=== PATIENT | male | born 1965 | race Caucasian/White ===

== ENCOUNTER 2016-06-06 11:23 | Inpatient (IN) | payer MEDICAID ==
[~2016-06-06] VITALS: Ht 187.9 cm; Wt 65.1 kg
[~2016-06-06 11:23] MED LIST: ANUSOL-HC25 MG RC; ATIVAN1 MG PO; AUGMENTIN 875 M1 TAB PO; Anusol Hc,Anuco25 MG PO; BACTRIM DS 8001 TA1 PO; CIPRO500 MG PO; CIPROFLOXACIN500 MG PO; CORTISPORIN SUS10 ML OT; DEBROX15 ML OT; DOXYCYCLINE100 M3 PO; FLOMAX0.4 MG PO; FLONASE 0.05% 121 EA NAS; HYDROCODONE BIT1 T11 PO; IBU-8800 MG PO; KEFLEX500 MG PO; MACROBID100 M1 PO; NAPROSYN500 MG PO; NKHM; PEN-VEE K500 MG PO; PYRIDIUM200 M1 PO; PYRIDIUM200 MG PO; TUCKS TP; ZYRTEC10 M2 PO; [UNRECOGNIZED DRUG - OTHER] PO; [UNRECOGNIZED DRUG - REMARK]
[2016-06-06 11:56] VITALS: BP 170/87
[2016-06-06 12:32] LABS: HEMATOCRIT 42.1 % (42.0-52.0); HEMOGLOBIN 14.3 g/dl (14.0-18.0); MEAN CELL VOLUME 98.6 fl (80.0-94.0); MEAN CORPUSCULAR HGB 33.5 pg (27.0-31.0); MEAN PLATELET VOLUME 9.9 fl (9.6-12.3); PLATELET COUNT AUTOMATED 279 10*3/uL (130-400); RED BLOOD COUNT 4.27 10*6/uL (4.50-5.90); RED CELL DISTRI WIDTH 12.7 % (0-14.5); WHITE BLOOD COUNT 18.6 10*3/uL (4.8-10.8)
[2016-06-06 12:44] LABS: BILIRUBIN 1+ (NEGATIVE); BLOOD 3+ (NEGATIVE); CLARITY TURBID (CLEAR); COLOR YELLOW (YELLOW); GLUCOSE NEGATIVE (NEGATIVE); KETONE NEGATIVE (NEGATIVE); PH 8.5 (5.0-9.0); SPECIFIC GRAVITY 1.005 (1.005-1.030)
[2016-06-06 12:45] LABS: LEUKO ESTERASE 3+ (NEGATIVE); NITRITE POSITIVE (NEGATIVE); PROTEIN 2+ (NEGATIVE); UROBILINOGEN 0.2 E.U./dl (0.2-1.0)
[2016-06-06 12:48] LABS: BACTERIA 4+; EPITHELIAL CELLS 21-30; RBC 21-30 rbc/hpf (0-2); URINE REFLEX COMMENT YES (NO); WBC TNTC wbc/hpf (0-5)
[2016-06-06 12:51] LABS: ALBUMIN 3.3 gm/dl (3.1-4.5); BASOPHIL # 0.2 10*3/uL (0-0.1); BASOPHILS 1 % (0-1); BILIRUBIN, TOTAL 0.6 mg/dl (0.2-1.0); EOSINOPHIL # 0.6 10*3/uL (0-0.4); EOSINOPHILS 3 % (1-4); LYMPHOCYTE # 2.8 10*3/uL (1.3-4.4); MONOCYTE # 0.7 10*3/uL (0.1-1.0); NEUTROPHIL # 14.3 10*3/uL (2.3-7.9); NEUTROPHILS 77 % (47-73); PLATELET SUFFICIENCY NORMAL (NORMAL); POTASSIUM 4.1 mmol/L (3.5-5.1); TOTAL CELLS COUNTED 100 #CELLS; TOTAL PROTEIN 7.2 gm/dL (6.4-8.2)
[2016-06-06 14:32] VITALS: BP 152/80
[2016-06-06 16:28] VITALS: BP 155/89
[2016-06-06 20:00] VITALS: BP 133/69
[2016-06-07] VITALS: BP 123/70
[2016-06-07 05:48] LABS: BUN 10 mg/dl (7-24); CARBON DIOXIDE 25 mmol/L (21-32); CHLORIDE 111 mmol/L (98-107); CHOLESTEROL 146 mg/dL (<200); EST GLOM FILT AFRICAN AMERICAN > 60 ml/min; FREE T4 1.26 ng/dl (0.76-1.46); GLUCOSE 89 mg/dL (65-99); HDL CHOLESTEROL 30 mg/dl (40-60); LDL CHOLESTEROL 90 mg/dL (9-159); MAGNESIUM 1.9 mg/dL (1.5-2.1); POTASSIUM 3.6 mmol/L (3.5-5.1); SODIUM 145 mmol/L (136-145); THYROID STIM HORMONE (HS) 0.932 uIU/ml (0.358-4.75); TRIGLYCERIDES 128 mg/dl (<150); VLDL CHOLESTEROL 26 mg/dL (6-40)
[2016-06-07 05:51] LABS: HEMOGLOBIN A1c 4.9 % (4.8-5.6)
[2016-06-07 06:09] LABS: BASO # 0.1 10*3/uL (0.0-0.1); BASO % 0.5 % (0.0-1.0); EOS # 0.6 10*3/uL (0.0-0.4); HEMATOCRIT 38.7 % (42.0-52.0); HEMOGLOBIN 12.9 g/dl (14.0-18.0); IG # 0.1 10*3/uL (0.0-0.1); LYMPH # 3.1 10*3/uL (1.3-4.4); LYMPH % 21.8 % (27.0-41.0); MEAN CELL VOLUME 99.5 fl (80.0-94.0); MEAN CORPUSCULAR HGB 33.2 pg (27.0-31.0); MEAN CORPUSCULAR HGB CONC 33.3 g/dl (33.0-37.0); MEAN PLATELET VOLUME 10.5 fl (9.6-12.3); MONO # 1.3 10*3/uL (0.1-1.0); MONO % 9.1 % (3.0-9.0); NEUT % 64.1 % (47.0-73.0); PLATELET COUNT AUTOMATED 267 10*3/uL (130-400); RED BLOOD COUNT 3.89 10*6/uL (4.50-5.90); RED CELL DISTRI WIDTH 12.9 % (0-14.5)
[2016-06-07 06:18] LABS: PROTHROMBIN TIME 10.2 SECONDS (9.0-12.4)
[2016-06-07 08:00] VITALS: BP 131/62
[2016-06-07 12:00] VITALS: BP 129/70
[2016-06-07 16:00] VITALS: BP 140/73
[2016-06-07 20:00] VITALS: BP 145/78
[2016-06-08] VITALS: BP 156/82
[2016-06-08 06:22] LABS: BASO # 0.1 10*3/uL (0.0-0.1); BASO % 0.6 % (0.0-1.0); EOS # 0.6 10*3/uL (0.0-0.4); EOS % 5.3 % (1.0-4.0); HEMOGLOBIN 12.6 g/dl (14.0-18.0); IG # 0.1 10*3/uL (0.0-0.1); LYMPH # 2.6 10*3/uL (1.3-4.4); LYMPH % 24.3 % (27.0-41.0); MEAN CELL VOLUME 99.2 fl (80.0-94.0); MEAN CORPUSCULAR HGB 32.9 pg (27.0-31.0); MEAN CORPUSCULAR HGB CONC 33.2 g/dl (33.0-37.0); MEAN PLATELET VOLUME 9.9 fl (9.6-12.3); MONO # 0.9 10*3/uL (0.1-1.0); MONO % 8.7 % (3.0-9.0); NEUT # 6.4 10*3/uL (2.3-7.9); NEUT % 60.5 % (47.0-73.0); PLATELET COUNT AUTOMATED 255 10*3/uL (130-400); RED BLOOD COUNT 3.83 10*6/uL (4.50-5.90); RED CELL DISTRI WIDTH 12.5 % (0-14.5); WHITE BLOOD COUNT 10.6 10*3/uL (4.8-10.8)
[2016-06-08 07:02] LABS: BUN 9 mg/dl (7-24); CARBON DIOXIDE 26 mmol/L (21-32); CHLORIDE 109 mmol/L (98-107); EST GLOM FILT AFRICAN AMERICAN > 60 ml/min; GLUCOSE 88 mg/dL (65-99); POTASSIUM 3.4 mmol/L (3.5-5.1); SODIUM 143 mmol/L (136-145)
[2016-06-08 08:00] VITALS: BP 136/70
[2016-06-08] MEDS ORDERED: FLOMAX0.4 MG PO (10:13)
[2016-06-08] MEDS ORDERED: CIPRO500 MG PO (10:14)
[2016-06-08 15:09] LABS: FOLIC ACID 8.27 ng/mL (>5.38)
[2016-06-20] MEDS ORDERED: FLOMAX0.4 MG PO (10:07)
[2016-06-20] MEDS ORDERED: HYDROCODONE BIT1 T11 PO (13:36)
[2016-06-20] MEDS ORDERED: DITROPAN XL5 MG PO (13:36)
== END 2016-06-08 14:10 | disposition home or self-care (01) | DRG 872 ==
LOC: ED 11:23 → 4E 16:05 → EDHOLD 16:05 → 4E 16:35
PROVIDERS: Internal Medicine; Registered Nurse
DX: A41.9 Sepsis, unspecified organism (principal); E44.0 Moderate protein-calorie malnutrition; N19 Unspecified kidney failure; N12 Tubulo-interstitial nephritis, not specified as acute or chronic; N13.30 Unspecified hydronephrosis; Z68.1 Body mass index [BMI] 19.9 or less, adult; R03.0 Elevated blood-pressure reading, without diagnosis of hypertension; N21.0 Calculus in bladder; N13.9 Obstructive and reflux uropathy, unspecified; N32.89 Other specified disorders of bladder; F41.9 Anxiety disorder, unspecified

== ENCOUNTER 2016-07-01 10:31 | Emergency (ER) | payer OTHER ==
[~2016-07-01] VITALS: Ht 187.9 cm; Wt 65.8 kg
[~2016-07-01 10:31] MED LIST changes: +DITROPAN XL5 MG PO
[2016-07-01 10:53] VITALS: BP 140/66
[2016-07-01 11:42] LABS: BILIRUBIN NEGATIVE (NEGATIVE); BLOOD 1+ (NEGATIVE); CLARITY SL CLOUDY (CLEAR); COLOR YELLOW (YELLOW); GLUCOSE NEGATIVE (NEGATIVE); KETONE NEGATIVE (NEGATIVE); LEUKO ESTERASE 1+ (NEGATIVE); NITRITE NEGATIVE (NEGATIVE); PH 6.5 (5.0-9.0); PROTEIN TRACE (NEGATIVE); UROBILINOGEN 0.2 E.U./dl (0.2-1.0)
[2016-07-01 11:56] LABS: BACTERIA 1+; WBC 21-30 wbc/hpf (0-5)
[2016-07-01 11:57] LABS: URINE REFLEX COMMENT YES (NO)
[2016-07-01] MEDS ORDERED: MACROBID100 M1 PO (12:00)
== END 2016-07-01 12:04 | disposition home or self-care (01) ==
LOC: ED 10:31
PROVIDERS: Nurse Practitioner Family
DX: N39.0 Urinary tract infection, site not specified (principal); R31.9 Hematuria, unspecified; R33.9 Retention of urine, unspecified; R03.0 Elevated blood-pressure reading, without diagnosis of hypertension; F41.9 Anxiety disorder, unspecified; F17.200 Nicotine dependence, unspecified, uncomplicated; Z79.899 Other long term (current) drug therapy

== ENCOUNTER 2016-08-21 11:41 | Emergency (ER) | payer OTHER ==
[2016-08-21 12:10] LABS: BILIRUBIN 1+ (NEGATIVE); BLOOD 2+ (NEGATIVE); CLARITY TURBID (CLEAR); COLOR YELLOW (YELLOW); GLUCOSE NEGATIVE (NEGATIVE); KETONE NEGATIVE (NEGATIVE); PH 7.5 (5.0-9.0); PROTEIN 1+ (NEGATIVE); SPECIFIC GRAVITY 1.005 (1.005-1.030)
[2016-08-21 12:11] LABS: UROBILINOGEN 0.2 E.U./dl (0.2-1.0)
[2016-08-21 12:13] LABS: NITRITE NEGATIVE (NEGATIVE)
[2016-08-21 12:14] LABS: LEUKO ESTERASE 3+ (NEGATIVE); URINE REFLEX COMMENT YES (NO); WBC TNTC wbc/hpf (0-5)
[2016-08-21 12:17] LABS: BASO # 0.1 10*3/uL (0.0-0.1); BASO % 0.6 % (0.0-1.0); EOS # 0.5 10*3/uL (0.0-0.4); EOS % 3.4 % (1.0-4.0); HEMATOCRIT 44.5 % (42.0-52.0); HEMOGLOBIN 15.4 g/dl (14.0-18.0); IG # 0.1 10*3/uL (0.0-0.1); LYMPH # 3.2 10*3/uL (1.3-4.4); LYMPH % 24.2 % (27.0-41.0); MEAN CELL VOLUME 94.9 fl (80.0-94.0); MEAN CORPUSCULAR HGB 32.8 pg (27.0-31.0); MEAN CORPUSCULAR HGB CONC 34.6 g/dl (33.0-37.0); MONO # 0.6 10*3/uL (0.1-1.0); MONO % 4.4 % (3.0-9.0); NEUT # 8.8 10*3/uL (2.3-7.9); PLATELET COUNT AUTOMATED 267 10*3/uL (130-400); RED BLOOD COUNT 4.69 10*6/uL (4.50-5.90); RED CELL DISTRI WIDTH 12.2 % (0-14.5); WHITE BLOOD COUNT 13.2 10*3/uL (4.8-10.8)
[2016-08-21 12:33] LABS: ALBUMIN 3.8 gm/dl (3.1-4.5); BILIRUBIN, TOTAL 0.4 mg/dl (0.2-1.0); POTASSIUM 3.6 mmol/L (3.5-5.1); TOTAL PROTEIN 7.8 gm/dL (6.4-8.2)
[2016-08-21] MEDS ORDERED: CEPHALEXIN500 M1 PO (12:51)
== END 2016-08-21 12:56 | disposition home or self-care (01) ==
LOC: ED 11:41
PROVIDERS: Registered Nurse
DX: N30.00 Acute cystitis without hematuria (principal); J20.9 Acute bronchitis, unspecified; F17.210 Nicotine dependence, cigarettes, uncomplicated; F41.9 Anxiety disorder, unspecified; Z79.899 Other long term (current) drug therapy

== ENCOUNTER 2016-11-30 11:22 | Emergency (ER) | payer OTHER ==
[~2016-11-30] VITALS: Ht 187.9 cm; Wt 68.0 kg
[~2016-11-30 11:22] MED LIST changes: +CEPHALEXIN500 M1 PO
[2016-11-30 11:27] VITALS: BP 149/88
[2016-11-30] MEDS ORDERED: NAPROSYN500 MG PO (11:40)
[2016-11-30 11:48] LABS: BILIRUBIN NEGATIVE (NEGATIVE); BLOOD 1+ (NEGATIVE); CLARITY CLOUDY (CLEAR); COLOR YELLOW (YELLOW); GLUCOSE NEGATIVE (NEGATIVE); KETONE NEGATIVE (NEGATIVE); LEUKO ESTERASE 3+ (NEGATIVE); NITRITE POSITIVE (NEGATIVE); PH 6.5 (5.0-9.0); PROTEIN NEGATIVE (NEGATIVE); UROBILINOGEN 0.2 E.U./dl (0.2-1.0)
[2016-11-30 11:50] LABS: URINE REFLEX COMMENT YES (NO)
[2016-11-30 11:51] LABS: WBC TNTC wbc/hpf (0-5)
[2016-11-30] MEDS ORDERED: BACTRIM DS 8001 TA1 PO (11:55)
== END 2016-11-30 14:17 | disposition home or self-care (01) ==
LOC: ED 11:22
PROVIDERS: Nurse Practitioner Family
DX: S80.02XA Contusion of left knee, initial encounter (principal); N39.0 Urinary tract infection, site not specified; R03.0 Elevated blood-pressure reading, without diagnosis of hypertension; F17.200 Nicotine dependence, unspecified, uncomplicated; W22.8XXA Striking against or struck by other objects, initial encounter; Y93.89 Activity, other specified; Y92.89 Other specified places as the place of occurrence of the external cause; Y99.8 Other external cause status

== ENCOUNTER 2017-02-11 21:32 | Inpatient (IN) | payer OTHER ==
[~2017-02-11] VITALS: Ht 187.9 cm; Wt 67.8 kg
[2017-02-11 21:32] VITALS: BP 137/77
[2017-02-11 21:52] LABS: BASO # 0.1 10*3/uL (0.0-0.1); BASO % 0.6 % (0.0-1.0); EOS # 0.6 10*3/uL (0.0-0.4); EOS % 4.4 % (1.0-4.0); HEMATOCRIT 43.9 % (42.0-52.0); LYMPH % 30.4 % (27.0-41.0); MEAN CELL VOLUME 95.9 fl (80.0-94.0); MEAN CORPUSCULAR HGB 32.8 pg (27.0-31.0); MEAN CORPUSCULAR HGB CONC 34.2 g/dl (33.0-37.0); MEAN PLATELET VOLUME 9.7 fl (9.6-12.3); MONO # 0.9 10*3/uL (0.1-1.0); MONO % 6.5 % (3.0-9.0); NEUT # 7.5 10*3/uL (2.3-7.9); NEUT % 57.9 % (47.0-73.0); PLATELET COUNT AUTOMATED 250 10*3/uL (130-400); RED BLOOD COUNT 4.58 10*6/uL (4.50-5.90); RED CELL DISTRI WIDTH 13.3 % (0-14.5)
[2017-02-11 22:00] VITALS: BP 128/78
[2017-02-11 22:02] LABS: ACT PARTIAL THROMBO TIME 25.1 SECONDS (20.8-31.5)
[2017-02-11 22:09] LABS: ALBUMIN 3.4 gm/dl (3.1-4.5); ALKALINE PHOSPHATASE 147 U/L (45-117); BUN 17 mg/dl (7-24); CHLORIDE 108 mmol/L (98-107); POTASSIUM 3.7 mmol/L (3.5-5.1); SGOT/AST 24 IU/L (3-35); SGPT/ALT 23 U/L (12-78); SODIUM 140 mmol/L (136-145); TOTAL PROTEIN 7.6 gm/dL (6.4-8.2)
[2017-02-11 22:10] LABS: TROPONIN I < 0.015 ng/ml (<0.045)
[2017-02-11 22:55] VITALS: BP 132/74
[2017-02-11 23:40] VITALS: BP 162/58
[2017-02-12 00:28] VITALS: BP 132/72
[2017-02-12 01:30] VITALS: BP 128/62
[2017-02-12 02:28] VITALS: BP 128/78
[2017-02-12 02:45] VITALS: BP 139/70
[2017-02-12 06:24] LABS: ALKALINE PHOSPHATASE 110 U/L (45-117); BUN 17 mg/dl (7-24); CHLORIDE 112 mmol/L (98-107); CHOLESTEROL 177 mg/dL (<200); CREATININE 1.28 mg/dL (0.70-1.30); HDL CHOLESTEROL 32 mg/dl (40-60); LDL CHOLESTEROL 113 mg/dL (9-159); POTASSIUM 3.7 mmol/L (3.5-5.1); SGOT/AST 17 IU/L (3-35); SGPT/ALT 18 U/L (12-78); SODIUM 142 mmol/L (136-145); TOTAL PROTEIN 6.5 gm/dL (6.4-8.2); TRIGLYCERIDES 162 mg/dl (<150); VLDL CHOLESTEROL 32 mg/dL (6-40)
[2017-02-12 08:00] VITALS: BP 123/72; BP 138/72
[2017-02-12 12:00] VITALS: BP 133/81
== END 2017-02-12 14:43 | disposition home or self-care (01) | DRG 313 ==
LOC: ED 21:32 → EDHOLD 02-12 00:35 → 5E 02-12 00:46
PROVIDERS: Emergency Medicine Emergency Medical Services; ADMIT Internal Medicine
DX: R07.2 Precordial pain (principal); N17.0 Acute kidney failure with tubular necrosis; E44.1 Mild protein-calorie malnutrition; Z68.1 Body mass index [BMI] 19.9 or less, adult; F41.9 Anxiety disorder, unspecified; F17.210 Nicotine dependence, cigarettes, uncomplicated; R00.1 Bradycardia, unspecified; D72.829 Elevated white blood cell count, unspecified; E87.8 Other disorders of electrolyte and fluid balance, not elsewhere classified; M25.512 Pain in left shoulder

== ENCOUNTER 2017-03-16 15:06 | Emergency (ER) | payer OTHER ==
[~2017-03-16] VITALS: Wt 68.0 kg
[2017-03-16 15:22] VITALS: BP 132/71
[2017-03-16 16:35] LABS: BILIRUBIN NEGATIVE (NEGATIVE); BLOOD 3+ (NEGATIVE); CLARITY CLOUDY (CLEAR); COLOR YELLOW (YELLOW); GLUCOSE NEGATIVE (NEGATIVE); KETONE NEGATIVE (NEGATIVE); LEUKO ESTERASE 3+ (NEGATIVE); NITRITE NEGATIVE (NEGATIVE); PH 6.5 (5.0-9.0); SPECIFIC GRAVITY <= 1.005 (1.005-1.030); UROBILINOGEN 0.2 E.U./dl (0.2-1.0)
[2017-03-16 16:46] LABS: BACTERIA 4+; RBC TNTC rbc/hpf (0-2); WBC TNTC wbc/hpf (0-5)
[2017-03-16] MEDS ORDERED: CIPRO500 MG PO (17:09)
== END 2017-03-16 17:17 | disposition left against medical advice (07) ==
LOC: ED 15:06
PROVIDERS: Physician Assistant
DX: N39.0 Urinary tract infection, site not specified (principal); L98.9 Disorder of the skin and subcutaneous tissue, unspecified; F17.200 Nicotine dependence, unspecified, uncomplicated

== ENCOUNTER 2017-03-18 16:25 | Emergency (ER) | payer OTHER ==
[~2017-03-18] VITALS: Ht 187.9 cm; Wt 68.0 kg
[2017-03-18 16:31] VITALS: BP 140/81
[2017-03-18 17:29] LABS: BASO # 0.1 10*3/uL (0.0-0.1); BASO % 0.6 % (0.0-1.0); EOS # 0.4 10*3/uL (0.0-0.4); EOS % 3.8 % (1.0-4.0); HEMATOCRIT 39.8 % (42.0-52.0); HEMOGLOBIN 13.6 g/dl (14.0-18.0); LYMPH # 3.4 10*3/uL (1.3-4.4); LYMPH % 30.6 % (27.0-41.0); MEAN CELL VOLUME 97.1 fl (80.0-94.0); MEAN CORPUSCULAR HGB 33.2 pg (27.0-31.0); MEAN CORPUSCULAR HGB CONC 34.2 g/dl (33.0-37.0); MEAN PLATELET VOLUME 10.4 fl (9.6-12.3); MONO # 0.7 10*3/uL (0.1-1.0); NEUT # 6.6 10*3/uL (2.3-7.9); NEUT % 58.7 % (47.0-73.0); PLATELET COUNT AUTOMATED 236 10*3/uL (130-400); RED CELL DISTRI WIDTH 12.5 % (0-14.5); WHITE BLOOD COUNT 11.2 10*3/uL (4.8-10.8)
[2017-03-18 17:47] LABS: ALBUMIN 3.3 gm/dl (3.1-4.5); CREATININE 1.54 mg/dL (0.70-1.30); POTASSIUM 3.5 mmol/L (3.5-5.1)
== END 2017-03-18 20:31 | disposition home or self-care (01) ==
LOC: ED 16:25
PROVIDERS: Nurse Practitioner Family
DX: K40.90 Unilateral inguinal hernia, without obstruction or gangrene, not specified as recurrent (principal); F17.200 Nicotine dependence, unspecified, uncomplicated

== ENCOUNTER 2017-04-20 08:31 | Emergency (ER) | payer OTHER ==
[~2017-04-20] VITALS: Ht 187.9 cm; Wt 68.0 kg
[2017-04-20 08:44] VITALS: BP 138/97
[2017-04-20 09:25] LABS: BILIRUBIN NEGATIVE (NEGATIVE); BLOOD 3+ (NEGATIVE); CLARITY CLOUDY (CLEAR); COLOR YELLOW (YELLOW); GLUCOSE NEGATIVE (NEGATIVE); KETONE NEGATIVE (NEGATIVE); LEUKO ESTERASE 3+ (NEGATIVE); NITRITE NEGATIVE (NEGATIVE); UROBILINOGEN 0.2 E.U./dl (0.2-1.0)
[2017-04-20 09:42] LABS: BACTERIA 4+; WBC TNTC wbc/hpf (0-5)
[2017-04-20] MEDS ORDERED: CLARITIN10 MG PO (09:52)
[2017-04-20] MEDS ORDERED: CIPRO500 MG PO (09:52)
[2017-04-20] MEDS ORDERED: FLONASE ALLERG9.9 ML NAS (09:52)
== END 2017-04-20 10:15 | disposition home or self-care (01) ==
LOC: ED 08:31
PROVIDERS: Emergency Medicine
DX: N39.0 Urinary tract infection, site not specified (principal); R03.0 Elevated blood-pressure reading, without diagnosis of hypertension; F17.210 Nicotine dependence, cigarettes, uncomplicated; F10.10 Alcohol abuse, uncomplicated; Z79.899 Other long term (current) drug therapy

== ENCOUNTER 2017-11-12 07:49 | Emergency (ER) | payer OTHER ==
[~2017-11-12] VITALS: Ht 187.9 cm; Wt 72.6 kg
[2017-11-12 07:49] VITALS: BP 128/79
[~2017-11-12 07:49] MED LIST changes: +CLARITIN10 MG PO; +FLONASE ALLERG9.9 ML NAS
[2017-11-12 08:12] LABS: BASO # 0.1 10*3/uL (0.0-0.1); BASO % 0.7 % (0.0-1.0); EOS # 0.4 10*3/uL (0.0-0.4); EOS % 2.9 % (1.0-4.0); HEMATOCRIT 41.7 % (42.0-52.0); HEMOGLOBIN 14.3 g/dl (14.0-18.0); LYMPH # 3.1 10*3/uL (1.3-4.4); LYMPH % 23.2 % (27.0-41.0); MEAN CELL VOLUME 96.5 fl (80.0-94.0); MEAN CORPUSCULAR HGB 33.1 pg (27.0-31.0); MEAN CORPUSCULAR HGB CONC 34.3 g/dl (33.0-37.0); MEAN PLATELET VOLUME 9.8 fl (9.6-12.3); MONO # 0.7 10*3/uL (0.1-1.0); MONO % 5.5 % (3.0-9.0); NEUT # 9.2 10*3/uL (2.3-7.9); NEUT % 67.3 % (47.0-73.0); PLATELET COUNT AUTOMATED 243 10*3/uL (130-400); RED BLOOD COUNT 4.32 10*6/uL (4.50-5.90); RED CELL DISTRI WIDTH 12.2 % (0-14.5); WHITE BLOOD COUNT 13.6 10*3/uL (4.8-10.8)
[2017-11-12 08:20] LABS: ACT PARTIAL THROMBO TIME 23.9 SECONDS (20.8-31.5)
[2017-11-12 08:26] LABS: ALBUMIN 3.6 gm/dl (3.1-4.5); CREATININE 1.68 mg/dL (0.70-1.30); POTASSIUM 3.9 mmol/L (3.5-5.1); TOTAL PROTEIN 7.2 gm/dL (6.4-8.2)
[2017-11-12 08:27] LABS: BILIRUBIN NEGATIVE (NEGATIVE); BLOOD 3+ (NEGATIVE); CLARITY CLOUDY (CLEAR); COLOR YELLOW (YELLOW); GLUCOSE NEGATIVE (NEGATIVE); KETONE NEGATIVE (NEGATIVE); LEUKO ESTERASE 3+ (NEGATIVE); NITRITE NEGATIVE (NEGATIVE); SPECIFIC GRAVITY 1.015 (1.005-1.030); UROBILINOGEN 0.2 E.U./dl (0.2-1.0)
[2017-11-12 08:42] LABS: BACTERIA 3+; RBC TNTC rbc/hpf (0-2); WBC TNTC wbc/hpf (0-5)
[2017-11-12] MEDS ORDERED: FLOMAX0.4 MG PO (09:23)
[2017-11-12] MEDS ORDERED: CIPRO500 MG PO (09:23)
== END 2017-11-12 10:29 | disposition home or self-care (01) ==
LOC: ED 07:49
PROVIDERS: Emergency Medicine
DX: R33.9 Retention of urine, unspecified (principal); N39.0 Urinary tract infection, site not specified; E78.00 Pure hypercholesterolemia, unspecified; F17.200 Nicotine dependence, unspecified, uncomplicated; Z79.899 Other long term (current) drug therapy

== ENCOUNTER 2017-11-15 13:17 | Emergency (ER) | payer OTHER ==
[~2017-11-15] VITALS: Ht 187.9 cm; Wt 72.6 kg
[2017-11-15 13:19] VITALS: BP 126/80
[2017-11-15] MEDS ORDERED: ANAPROX DS550 MG PO (15:08)
== END 2017-11-15 15:21 | disposition home or self-care (01) ==
LOC: ED 13:17
DX: M79.662 Pain in left lower leg (principal)

== ENCOUNTER 2017-11-17 08:28 | Emergency (ER) | payer OTHER ==
[~2017-11-17] VITALS: Ht 187.9 cm; Wt 72.6 kg
[~2017-11-17 08:28] MED LIST changes: +ANAPROX DS550 MG PO
[2017-11-17 08:31] VITALS: BP 121/65
== END 2017-11-17 09:16 | disposition home or self-care (01) ==
LOC: ED 08:28
DX: T83.89XA Other specified complication of genitourinary prosthetic devices, implants and grafts, initial encounter (principal); B88.8 Other specified infestations; F17.200 Nicotine dependence, unspecified, uncomplicated; Z79.899 Other long term (current) drug therapy; Y92.9 Unspecified place or not applicable

== ENCOUNTER 2017-11-23 08:57 | Emergency (ER) | payer OTHER ==
[~2017-11-23] VITALS: Ht 182.8 cm; Wt 72.6 kg
[2017-11-23 09:00] VITALS: BP 109/79
[2017-11-23 09:37] LABS: BASO # 0.1 10*3/uL (0.0-0.1); BASO % 0.6 % (0.0-1.0); EOS # 0.5 10*3/uL (0.0-0.4); EOS % 3.7 % (1.0-4.0); HEMATOCRIT 40.7 % (42.0-52.0); HEMOGLOBIN 13.8 g/dl (14.0-18.0); LYMPH # 3.1 10*3/uL (1.3-4.4); LYMPH % 24.4 % (27.0-41.0); MEAN CELL VOLUME 98.5 fl (80.0-94.0); MEAN CORPUSCULAR HGB 33.4 pg (27.0-31.0); MEAN CORPUSCULAR HGB CONC 33.9 g/dl (33.0-37.0); MEAN PLATELET VOLUME 9.7 fl (9.6-12.3); MONO # 0.6 10*3/uL (0.1-1.0); MONO % 4.9 % (3.0-9.0); NEUT # 8.3 10*3/uL (2.3-7.9); NEUT % 66.2 % (47.0-73.0); PLATELET COUNT AUTOMATED 260 10*3/uL (130-400); RED BLOOD COUNT 4.13 10*6/uL (4.50-5.90); RED CELL DISTRI WIDTH 12.6 % (0-14.5); WHITE BLOOD COUNT 12.5 10*3/uL (4.8-10.8)
[2017-11-23 09:53] LABS: ALBUMIN 3.7 gm/dl (3.1-4.5); ALKALINE PHOSPHATASE 97 U/L (45-117); BUN 19 mg/dl (7-24); CHLORIDE 107 mmol/L (98-107); CREATININE 1.46 mg/dL (0.70-1.30); POTASSIUM 3.9 mmol/L (3.5-5.1); SGOT/AST 17 IU/L (3-35); SGPT/ALT 21 U/L (12-78); SODIUM 139 mmol/L (136-145)
[2017-11-23 09:55] LABS: TROPONIN I < 0.015 ng/ml (<0.045)
[2017-11-23] MEDS ORDERED: NAPROSYN500 MG PO (10:24)
== END 2017-11-23 10:49 | disposition left against medical advice (07) ==
LOC: ED 08:57
PROVIDERS: Nurse Practitioner
DX: S86.912A Strain of unspecified muscle(s) and tendon(s) at lower leg level, left leg, initial encounter (principal); R42 Dizziness and giddiness; H57.12 Ocular pain, left eye; F17.200 Nicotine dependence, unspecified, uncomplicated; Z79.899 Other long term (current) drug therapy; X58.XXXA Exposure to other specified factors, initial encounter; Y93.01 Activity, walking, marching and hiking; Y92.89 Other specified places as the place of occurrence of the external cause; Y99.8 Other external cause status

== ENCOUNTER 2017-12-24 09:11 | Emergency (ER) | payer OTHER ==
[~2017-12-24] VITALS: Ht 187.9 cm; Wt 72.6 kg
[2017-12-24 09:12] VITALS: BP 130/81
[2017-12-24] MEDS ORDERED: NAPROSYN500 MG PO (09:29)
== END 2017-12-24 09:45 | disposition home or self-care (01) ==
LOC: ED 09:11
DX: S80.12XA Contusion of left lower leg, initial encounter (principal); X58.XXXA Exposure to other specified factors, initial encounter; Y93.89 Activity, other specified; Y92.89 Other specified places as the place of occurrence of the external cause; Y99.8 Other external cause status

== ENCOUNTER → 2018-02-28 | Emergency (ER) | payer OTHER ==
[~2018-02-28] VITALS: Ht 187.9 cm; Wt 72.6 kg
[2018-02-28 12:36] VITALS: BP 117/55
== END ==
LOC: ED 12:36
DX: H92.01 Otalgia, right ear (principal); Z53.21 Procedure and treatment not carried out due to patient leaving prior to being seen by health care provider; F17.200 Nicotine dependence, unspecified, uncomplicated; Z79.899 Other long term (current) drug therapy

== ENCOUNTER 2018-03-04 08:05 | Emergency (ER) | payer OTHER ==
[~2018-03-04] VITALS: Ht 187.9 cm; Wt 72.6 kg
[2018-03-04 08:08] VITALS: BP 125/69
== END 2018-03-04 10:19 | disposition home or self-care (01) ==
LOC: ED 08:05
DX: H61.21 Impacted cerumen, right ear (principal)

== ENCOUNTER 2018-03-07 18:00 | Emergency (ER) | payer OTHER ==
[~2018-03-07] VITALS: Ht 177.8 cm; Wt 72.6 kg
--- NOTE | ~2018-03-07 | EKG ---
[place], [place] ELECTROCARDIOGRAM REPORT NAME: OSMEL BAUM UNIT #: [id number] ROOM: DOCTOR: EPIPHANY DRAFT REPORT BIRTHDATE: [birth year] [facility] Test Date: 2018-03-07 Test Time: 18:01:48 Pat Name: OSMEL BAUM Department: Room: Gender: M Laundrette Owner: Montse Hartley : 1965 Requested By: RADHA MORGAN Order Number: [id number] Reading MD: Angelito Colunga MD Measurements Intervals [place] Rate: 103 P: 77 DC: 130 QRS: -38 QRSD: 108 T: 59 QT: 344 QTc: 451 Interpretive Statements Sinus tachycardia Probable left atrial enlargement Left axis deviation Extensive anterior infarct, acute (LAD) Acute anterior STEMI Electronically Signed On 03-07-2018 19:55:41 PDT by Angelito Colunga MD CM:EKGRPT:ELECTROCARDIOGRAM REPORT 00 54 RADHA HANCOCK DRAFT REPORT RADHA MORGAN MD
[2018-03-07 18:17] LABS: BASO # 0.1 10*3/uL (0.0-0.1); BASO % 0.6 % (0.0-1.0); EOS # 0.3 10*3/uL (0.0-0.4); EOS % 2.3 % (1.0-4.0); HEMOGLOBIN 13.4 g/dl (14.0-18.0); LYMPH # 1.9 10*3/uL (1.3-4.4); LYMPH % 14.8 % (27.0-41.0); MEAN CELL VOLUME 99.5 fl (80.0-94.0); MEAN CORPUSCULAR HGB 33.3 pg (27.0-31.0); MEAN CORPUSCULAR HGB CONC 33.5 g/dl (33.0-37.0); MEAN PLATELET VOLUME 9.9 fl (9.6-12.3); MONO # 0.7 10*3/uL (0.1-1.0); MONO % 5.7 % (3.0-9.0); NEUT # 9.8 10*3/uL (2.3-7.9); NEUT % 76.1 % (47.0-73.0); PLATELET COUNT AUTOMATED 297 10*3/uL (130-400); RED BLOOD COUNT 4.02 10*6/uL (4.50-5.90); RED CELL DISTRI WIDTH 12.9 % (0-14.5); WHITE BLOOD COUNT 12.8 10*3/uL (4.8-10.8)
[2018-03-07 18:18] VITALS: BP 112/77
[2018-03-07 18:26] LABS: ACT PARTIAL THROMBO TIME 23.5 SECONDS (20.8-31.5)
[2018-03-07 18:33] LABS: ALBUMIN 3.4 gm/dl (3.1-4.5); CREATININE 1.92 mg/dL (0.70-1.30); POTASSIUM 3.9 mmol/L (3.5-5.1); TOTAL PROTEIN 7.3 gm/dL (6.4-8.2)
[2018-03-07 18:48] LABS: TROPONIN I 5.35 ng/ml (<0.045)
== END 2018-03-07 18:37 | disposition short-term general hospital (02) ==
LOC: ED 18:00
PROVIDERS: Emergency Medicine
DX: I21.09 ST elevation (STEMI) myocardial infarction involving other coronary artery of anterior wall (principal); E78.00 Pure hypercholesterolemia, unspecified; I10 Essential (primary) hypertension; F17.200 Nicotine dependence, unspecified, uncomplicated

== ENCOUNTER 2018-11-28 09:15 | Emergency (ER) | payer OTHER ==
[~2018-11-28] VITALS: Wt 72.6 kg
[2018-11-28 09:15] VITALS: BP 148/86
[~2018-11-28 09:15] MED LIST changes: +ASPIR LOW81 MG PO; +ATORVASTATIN CA80 M1 PO; +FAMOTIDINE20 M1 PO; +LISINOPRIL2.5 MG PO; +MAPAP325 MG PO; +METOPROLOL SUCC25 M2 PO
[2018-11-28] MEDS ORDERED: DEBROX15 ML OT (09:39)
[2019-01-22] MEDS ORDERED: CIPRO500 MG PO (10:55)
== END 2018-11-28 09:44 | disposition home or self-care (01) ==
LOC: ED 09:15
DX: H61.21 Impacted cerumen, right ear (principal); F17.200 Nicotine dependence, unspecified, uncomplicated; Z79.2 Long term (current) use of antibiotics; Z79.899 Other long term (current) drug therapy; Z79.82 Long term (current) use of aspirin

== ENCOUNTER 2018-12-30 12:14 | Emergency (ER) | payer OTHER ==
[~2018-12-30] VITALS: Ht 187.9 cm; Wt 72.6 kg
[2018-12-30 12:15] VITALS: BP 128/76
[2018-12-30] MEDS ORDERED: IBU800 MG PO (13:28)
== END 2018-12-30 13:35 | disposition home or self-care (01) ==
LOC: ED 12:14
DX: S76.112A Strain of left quadriceps muscle, fascia and tendon, initial encounter (principal); F17.200 Nicotine dependence, unspecified, uncomplicated; Z79.899 Other long term (current) drug therapy; Z79.82 Long term (current) use of aspirin; X58.XXXA Exposure to other specified factors, initial encounter; Y93.01 Activity, walking, marching and hiking; Y92.89 Other specified places as the place of occurrence of the external cause; Y99.8 Other external cause status

== ENCOUNTER 2019-02-06 09:13 | Emergency (ER) | payer OTHER ==
[~2019-02-06] VITALS: Ht 187.9 cm; Wt 72.6 kg
[~2019-02-06 09:13] MED LIST changes: +IBU800 MG PO
[2019-02-06 09:18] VITALS: BP 151/80
[2019-02-06 10:39] LABS: BILIRUBIN NEGATIVE (NEGATIVE); BLOOD NEGATIVE (NEGATIVE); CLARITY SL CLOUDY (CLEAR); COLOR YELLOW (YELLOW); GLUCOSE NEGATIVE (NEGATIVE); KETONE NEGATIVE (NEGATIVE); LEUKO ESTERASE 1+ (NEGATIVE); NITRITE NEGATIVE (NEGATIVE); SPECIFIC GRAVITY <= 1.005 (1.005-1.030); UROBILINOGEN 0.2 E.U./dl (0.2-1.0)
[2019-02-06 10:53] LABS: BASO # 0.1 10*3/uL (0.0-0.1); BASO % 0.8 % (0.0-1.0); EOS # 0.3 10*3/uL (0.0-0.4); EOS % 2.9 % (1.0-4.0); HEMATOCRIT 42.7 % (42.0-52.0); HEMOGLOBIN 14.3 g/dl (14.0-18.0); LYMPH # 1.7 10*3/uL (1.3-4.4); LYMPH % 19.3 % (27.0-41.0); MEAN CELL VOLUME 98.8 fl (80.0-94.0); MEAN CORPUSCULAR HGB 33.1 pg (27.0-31.0); MEAN CORPUSCULAR HGB CONC 33.5 g/dl (33.0-37.0); MEAN PLATELET VOLUME 9.6 fl (9.6-12.3); MONO # 0.8 10*3/uL (0.1-1.0); MONO % 9.2 % (3.0-9.0); NEUT % 67.5 % (47.0-73.0); PLATELET COUNT AUTOMATED 328 10*3/uL (130-400); RED BLOOD COUNT 4.32 10*6/uL (4.50-5.90); RED CELL DISTRI WIDTH 12.9 % (0-14.5); WHITE BLOOD COUNT 8.8 10*3/uL (4.8-10.8)
[2019-02-06 11:10] LABS: ALBUMIN 3.6 gm/dl (3.1-4.5); BUN 9 mg/dl (7-24); CHLORIDE 105 mmol/L (98-107); CREATININE 1.39 mg/dL (0.70-1.30); POTASSIUM 4.1 mmol/L (3.5-5.1); SGOT/AST 18 IU/L (3-35); SGPT/ALT 29 U/L (12-78); SODIUM 138 mmol/L (136-145); TOTAL PROTEIN 7.6 gm/dL (6.4-8.2)
[2019-02-06 11:11] LABS: ALKALINE PHOSPHATASE 151 U/L (45-117)
== END 2019-02-06 11:42 | disposition home or self-care (01) ==
LOC: ED 09:13
PROVIDERS: Nurse Practitioner Family
DX: R59.0 Localized enlarged lymph nodes (principal); I10 Essential (primary) hypertension; I25.2 Old myocardial infarction; F17.200 Nicotine dependence, unspecified, uncomplicated; Z79.2 Long term (current) use of antibiotics; Z79.899 Other long term (current) drug therapy; Z87.442 Personal history of urinary calculi

== ENCOUNTER 2019-02-22 08:44 | Emergency (ER) | payer OTHER ==
[~2019-02-22] VITALS: Ht 187.9 cm; Wt 72.6 kg
[2019-02-22 08:46] VITALS: BP 138/80
[2019-02-22 09:31] LABS: BASO # 0.1 10*3/uL (0.0-0.1); BASO % 0.8 % (0.0-1.0); EOS # 0.6 10*3/uL (0.0-0.4); EOS % 4.7 % (1.0-4.0); HEMOGLOBIN 14.2 g/dl (14.0-18.0); LYMPH # 3.7 10*3/uL (1.3-4.4); MEAN CELL VOLUME 98.1 fl (80.0-94.0); MEAN CORPUSCULAR HGB 33.2 pg (27.0-31.0); MEAN CORPUSCULAR HGB CONC 33.8 g/dl (33.0-37.0); MONO # 0.6 10*3/uL (0.1-1.0); MONO % 4.7 % (3.0-9.0); NEUT # 7.7 10*3/uL (2.3-7.9); NEUT % 60.5 % (47.0-73.0); PLATELET COUNT AUTOMATED 272 10*3/uL (130-400); RED BLOOD COUNT 4.28 10*6/uL (4.50-5.90); RED CELL DISTRI WIDTH 12.9 % (0-14.5); WHITE BLOOD COUNT 12.7 10*3/uL (4.8-10.8)
[2019-02-22 09:46] LABS: ALBUMIN 3.6 gm/dl (3.1-4.5); CREATININE 1.49 mg/dL (0.70-1.30); TOTAL PROTEIN 7.2 gm/dL (6.4-8.2)
[2019-02-22 10:03] LABS: BILIRUBIN NEGATIVE (NEGATIVE); BLOOD TRACE-INTACT (NEGATIVE); CLARITY CLOUDY (CLEAR); COLOR YELLOW (YELLOW); GLUCOSE NEGATIVE (NEGATIVE); KETONE NEGATIVE (NEGATIVE); LEUKO ESTERASE 3+ (NEGATIVE); NITRITE POSITIVE (NEGATIVE); PH 6.5 (5.0-9.0); UROBILINOGEN 0.2 E.U./dl (0.2-1.0)
[2019-02-22 10:23] LABS: WBC TNTC wbc/hpf (0-5)
[2019-02-22] MEDS ORDERED: SEPTDS PO (10:23)
[2019-02-22 10:25] LABS: BACTERIA 3+
== END 2019-02-22 10:59 | disposition home or self-care (01) ==
LOC: ED 08:44
PROVIDERS: Physician Assistant
DX: N39.0 Urinary tract infection, site not specified (principal); T83.84XA Pain due to genitourinary prosthetic devices, implants and grafts, initial encounter; R59.0 Localized enlarged lymph nodes; F17.200 Nicotine dependence, unspecified, uncomplicated; Z79.899 Other long term (current) drug therapy; Z79.82 Long term (current) use of aspirin; Y84.6 Urinary catheterization as the cause of abnormal reaction of the patient, or of later complication, without mention of misadventure at the time of the procedure; Y92.89 Other specified places as the place of occurrence of the external cause

== ENCOUNTER 2020-09-25 10:25 | Emergency (ER) | payer OTHER ==
[~2020-09-25] VITALS: Ht 187.9 cm; Wt 72.6 kg
[~2020-09-25 10:25] MED LIST changes: +SEPTDS PO
[2020-09-25 10:30] VITALS: BP 131/86
[2020-09-25] MEDS ORDERED: TYLENOL325 M1 PO (11:29)
[2020-09-25] MEDS ORDERED: FLONASE ALLERG9.9 ML NAS (11:29)
== END 2020-09-25 11:50 | disposition home or self-care (01) ==
LOC: ED 10:25
DX: S76.211A Strain of adductor muscle, fascia and tendon of right thigh, initial encounter (principal); R09.81 Nasal congestion; Z79.899 Other long term (current) drug therapy; Z79.82 Long term (current) use of aspirin; I25.10 Atherosclerotic heart disease of native coronary artery without angina pectoris; I12.9 Hypertensive chronic kidney disease with stage 1 through stage 4 chronic kidney disease, or unspecified chronic kidney disease; N18.30 Chronic kidney disease, stage 3 unspecified; K21.9 Gastro-esophageal reflux disease without esophagitis; Z98.890 Other specified postprocedural states; X58.XXXA Exposure to other specified factors, initial encounter; Y93.67 Activity, basketball; Y92.89 Other specified places as the place of occurrence of the external cause; Y99.8 Other external cause status

== ENCOUNTER 2021-01-04 11:10 | Emergency (ER) | payer OTHER ==
[~2021-01-04] VITALS: Ht 187.9 cm; Wt 72.6 kg
[~2021-01-04 11:10] MED LIST changes: +TYLENOL325 M1 PO
[2021-01-04 12:02] LABS: BASO # 0.1 10*3/uL (0.0-0.1); BASO % 0.6 % (0.0-1.0); EOS # 0.4 10*3/uL (0.0-0.4); EOS % 4.1 % (1.0-4.0); HEMATOCRIT 46.8 % (42.0-52.0); LYMPH # 3.9 10*3/uL (1.3-4.4); LYMPH % 37.2 % (27.0-41.0); MEAN CELL VOLUME 98.7 fl (80.0-94.0); MEAN CORPUSCULAR HGB 33.3 pg (27.0-31.0); MEAN CORPUSCULAR HGB CONC 33.8 g/dl (33.0-37.0); MEAN PLATELET VOLUME 9.3 fl (9.6-12.3); MONO # 0.9 10*3/uL (0.1-1.0); MONO % 8.7 % (3.0-9.0); NEUT # 5.2 10*3/uL (2.3-7.9); NEUT % 48.9 % (47.0-73.0); PLATELET COUNT AUTOMATED 275 10*3/uL (130-400); RED BLOOD COUNT 4.74 10*6/uL (4.50-5.90); RED CELL DISTRI WIDTH 12.7 % (0-14.5); WHITE BLOOD COUNT 10.5 10*3/uL (4.8-10.8)
[2021-01-04 12:17] LABS: ALBUMIN 3.4 gm/dl (3.1-4.5); ALKALINE PHOSPHATASE 145 U/L (45-117); BUN 16 mg/dl (7-24); CHLORIDE 110 mmol/L (98-107); CREATININE 1.41 mg/dL (0.70-1.30); POTASSIUM 3.7 mmol/L (3.5-5.1); SGOT/AST 17 IU/L (3-35); SGPT/ALT 23 U/L (12-78); SODIUM 139 mmol/L (136-145)
[2021-01-04 12:19] LABS: TROPONIN I < 0.015 ng/ml (<0.045)
[2021-01-04 14:50] VITALS: BP 138/76
[2021-01-04] MEDS ORDERED: PREDNISONE10 MG PO (15:04)
[2021-01-04] MEDS ORDERED: CYCLOBENZAPRINE10 MG PO (15:04)
== END 2021-01-04 15:17 | disposition home or self-care (01) ==
LOC: ED 11:10
PROVIDERS: Family Medicine
DX: R10.32 Left lower quadrant pain (principal); R07.89 Other chest pain; M79.89 Other specified soft tissue disorders; F17.200 Nicotine dependence, unspecified, uncomplicated

== ENCOUNTER 2021-10-08 10:33 | Emergency (ER) | payer OTHER ==
[~2021-10-08] VITALS: Wt 72.6 kg
[~2021-10-08 10:33] MED LIST changes: +CYCLOBENZAPRINE10 MG PO; +PREDNISONE10 MG PO
[2021-10-08 10:37] VITALS: BP 118/58
[2021-10-08] MEDS ORDERED: NAPROXEN250 MG PO (10:50)
== END 2021-10-08 11:06 | disposition home or self-care (01) ==
LOC: ED 10:33
DX: M25.511 Pain in right shoulder (principal)

== ENCOUNTER 2022-01-17 09:36 | Emergency (ER) | payer OTHER ==
[~2022-01-17] VITALS: Ht 187.9 cm; Wt 77.1 kg
[~2022-01-17 09:36] MED LIST changes: +NAPROXEN250 MG PO
[2022-01-17 10:15] VITALS: BP 126/72
[2022-01-17] MEDS ORDERED: IBU800 M2 PO (11:41)
== END 2022-01-17 11:48 | disposition home or self-care (01) ==
LOC: ED 09:36
DX: S39.011A Strain of muscle, fascia and tendon of abdomen, initial encounter (principal); Z87.891 Personal history of nicotine dependence; X50.1XXA Overexertion from prolonged static or awkward postures, initial encounter; Y93.89 Activity, other specified; Y92.89 Other specified places as the place of occurrence of the external cause; Y99.8 Other external cause status

== ENCOUNTER 2022-06-17 13:28 | Emergency (ER) | payer OTHER ==
[~2022-06-17] VITALS: Wt 81.2 kg
[~2022-06-17 13:28] MED LIST changes: +IBU800 M2 PO
[2022-06-17 13:54] VITALS: BP 134/70
[2022-06-17] MEDS ORDERED: Motrin,Rufen800 MG PO (15:40)
[2022-06-17] MEDS ORDERED: ACETAMINOPHEN650 M5 PO (15:40)
== END 2022-06-17 16:15 | disposition home or self-care (01) ==
LOC: ED 13:28
DX: S46.912A Strain of unspecified muscle, fascia and tendon at shoulder and upper arm level, left arm, initial encounter (principal); Z87.891 Personal history of nicotine dependence; X58.XXXA Exposure to other specified factors, initial encounter; Y93.89 Activity, other specified; Y92.89 Other specified places as the place of occurrence of the external cause; Y99.8 Other external cause status

== ENCOUNTER → 2023-11-27 | Outpatient (CLI) | payer OTHER ==
[~2023-11-27] MED LIST changes: +ACETAMINOPHEN650 M5 PO; +Motrin,Rufen800 MG PO
== END ==
LOC: CT 11-23 13:00
PROVIDERS: ATTEND Internal Medicine
DX: Z12.2 Encounter for screening for malignant neoplasm of respiratory organs (principal); I25.10 Atherosclerotic heart disease of native coronary artery without angina pectoris; R91.1 Solitary pulmonary nodule; F17.210 Nicotine dependence, cigarettes, uncomplicated

== ENCOUNTER 2024-02-24 13:17 | Emergency (ER) | payer OTHER ==
[~2024-02-24] VITALS: Ht 5486.4 cm; Wt 2.8 kg
[2024-02-24 13:34] VITALS: BP 164/88
[2024-02-24 15:44] LABS: BASO # 0.1 10*3/uL (0.0-0.1); BASO % 0.6 % (0.0-1.0); EOS # 0.1 10*3/uL (0.0-0.4); EOS % 1.1 % (1.0-4.0); HEMATOCRIT 44.7 % (42.0-52.0); LYMPH % 16.4 % (27.0-41.0); MEAN CELL VOLUME 98.7 fl (80.0-94.0); MEAN CORPUSCULAR HGB 34.2 pg (27.0-31.0); MEAN CORPUSCULAR HGB CONC 34.7 g/dl (33.0-37.0); MEAN PLATELET VOLUME 9.8 fl (9.6-12.3); MONO % 8.2 % (3.0-9.0); NEUT # 9.1 10*3/uL (2.3-7.9); NEUT % 73.3 % (47.0-73.0); PLATELET COUNT AUTOMATED 324 10*3/uL (130-400); RED BLOOD COUNT 4.53 10*6/uL (4.50-5.90); RED CELL DISTRI WIDTH 12.9 % (0-14.5); WHITE BLOOD COUNT 12.5 10*3/uL (4.8-10.8)
[2024-02-24 16:07] LABS: ALKALINE PHOSPHATASE 151 U/L (46-116); BUN 9 mg/dl (9-23); CHLORIDE 105 mmol/L (98-107); LIPASE 35 U/L (12-53); POTASSIUM 4.3 mmol/L (3.4-5.1); SGPT/ALT 16 U/L (5-49); TOTAL PROTEIN 7.5 gm/dL (6.0-8.0)
[2024-02-24] MEDS ORDERED: Albuterol Sulf/Ipratropium 3 ML VIAL NEB ONE (17:00)
[2024-02-24] MEDS ORDERED: methylPREDNISolone sod succ 125 MG VIAL IM ONE (17:00)
[2024-02-24] MEDS ORDERED: AZITHROMYCIN 250 MG TAB PO ONE (17:00)
[2024-02-24] MEDS ORDERED: AVPAK AZITHROM250 M1 PO (17:46)
[2024-02-24] MEDS ORDERED: PREDNISONE20 M1 PO (17:47)
== END 2024-02-24 18:29 | disposition home or self-care (01) ==
LOC: ED 13:17
PROVIDERS: Nurse Practitioner Family
DX: J40 Bronchitis, not specified as acute or chronic (principal); Z20.822 Contact with and (suspected) exposure to COVID-19; I25.10 Atherosclerotic heart disease of native coronary artery without angina pectoris; K21.9 Gastro-esophageal reflux disease without esophagitis; E78.5 Hyperlipidemia, unspecified; E83.51 Hypocalcemia; E87.1 Hypo-osmolality and hyponatremia; E83.39 Other disorders of phosphorus metabolism; D63.1 Anemia in chronic kidney disease; I25.2 Old myocardial infarction; Z87.442 Personal history of urinary calculi; I12.9 Hypertensive chronic kidney disease with stage 1 through stage 4 chronic kidney disease, or unspecified chronic kidney disease; N18.30 Chronic kidney disease, stage 3 unspecified; F17.290 Nicotine dependence, other tobacco product, uncomplicated; Z98.890 Other specified postprocedural states